=== PATIENT | male | born 1995 | race Caucasian/White ===

== ENCOUNTER 2016-10-30 19:24 | Emergency (ER) | payer OTHER ==
[2016-10-30 19:38] VITALS: BP 106/66; PULSE 73; RESP 16; TEMP 98.2; O2SAT 98
--- NOTE | 2016-10-30 19:58 | UCPHY ---
H & P Patient Type: Established HPI/ROS: CHIEF COMPLAINT: Left lower lip laceration. HISTORY OF PRESENT ILLNESS: The patient is a 21-year-old male who presents with left lower lip laceration secondary to being elbowed while playing basketball. The bleeding has been well-controlled. He denies jaw pain, dental trauma, tongue trauma, or other complaints. nl occlusion. REVIEW OF SYSTEMS: Constitutional: No fever, no chills. Eyes: No diplopia. ENT: No sore throat or change in voice Musculoskeletal: No back pain. No neck pain. Skin: No rashes. Neurological: No headache. Past Medical/Surgical History: Denies. Social History: Smoker. Smoking Status: Current some day smoker Physical Exam: General Appearance: Alert, no distress. Afebrile. Normal phonation. No respiratory distress. Eyes: Pupils equal and round no pallor or injection. No icterus ENT, Mouth: Mucous membranes moist. Pharynx not erythematous and without exudate. TM Clear. Jagged 2cm laceration to left lower lip, involving the lemuel border.. Neck: No adenopathy. Trachea in midline. Neurological: Ox3. No motor weakness. Sensation intact. Gait nl. Skin: Warm and dry, no rashes. Psychiatric: Patient is oriented X 3, there is no agitation, calm. Constitutional: Initial Vital Signs Temperature (C) 36.8 C 10/30/16 19:35 Heart Rate 73 10/30/16 19:35 Respiratory Rate 16 10/30/16 19:35 Blood Pressure 106/66 10/30/16 19:35 O2 Sat (%) 98 10/30/16 19:35 O2 Delivery Mode Room Air Allergies/Adverse Reactions: No Known Allergies Allergy (Unverified 09/11/15 14:30) Home Medications: Medication Instructions Recorded EPINEPHRINE [EPIPEN] 0.3 mg IM ONCE #2 syr 09/11/15 Medical Decision Making Procedures: Procedure: Laceration repair. Verbal consent was obtained from the patient. The 2cm laceration on the left lip was anesthetized by way of a left sided mental nerve block with Xylocain 1% with Epi. Tolerated well. The wound was cleaned with normal saline, standard ED protocol, draped and explored to its base with a gloved finger and forceps.. There were no deep structures involved, it was not through and through. First, a localization suture to the lemuel border, followed by wound repaired in multiple layer technique. 5-0 Vicryl for the muscularis and the subcutaneous tissue an then a running as well as interrupted 6-0 Nylon to the skin. The wound repair was intermediate. The procedure was performed by myself. ED Course/Re-evaluation: 21-year-old male presents with left lower lip laceration secondary to being elbowed in basketball just prior to arrival. Bleeding is well-controlled. He has no other oral trauma. No dental occlusion. I anesthetized and sutured the laceration (see procedure note for details) and the patient was discharged in good condition. Differential Diagnosis: Diffenterntial includes, but not limited to: Fracture of teeth, teeth subluxation, fracture of jaw, facial laceration, nerve injury Departure - Departure Disposition: Home, Routine, Self-Care Clinical Impression: Lip laceration Qualifiers: Encounter type: initial encounter Qualified Code(s): S01.511A - Laceration without foreign body of lip, initial encounter Condition: Good Instructions: Care For Your Stitches (ED), Laceration (ED) Additional Instructions: Keep wound clean with warm soapy water. It is okay to shower with the stitches but do not immerse them in water for a prolonged amount of time. Clean with HYDROGEN PEROXIDE, then apply BACITRACIN. No sun for 4 months - lip balm with sun screen. Return in 5 days for suture removal. You have been provided the telephone number of the on-call plastic surgeon and you can follow up if you are concerned about scarring. Return for any serious worsening of condition. Referrals: Eleazar Rush JR, MD [Medical Doctor] - As per Instructions - PQRS PQRS Measurement: Does not apply. Report Scribed for: Yan Kelley Report Scribed by: Efrain Meléndez Date of Report: 10/30/16 Time of Report: 20:37
== END 2016-10-30 21:40 | disposition home or self-care (01) ==
LOC: CED 19:24
PROC: 0CQ1XZZ Repair Lower Lip, External Approach (ICD-10-PCS; principal; 2016-10-30)
DX: S01.511A Laceration without foreign body of lip, initial encounter (principal); Z72.0 Tobacco use; W50.0XXA Accidental hit or strike by another person, initial encounter; Y93.67 Activity, basketball
CPT/HCPCS: 12051-PO; 99203-PO; G0463-PO